=== PATIENT | female | born 1985 | race Caucasian/White ===

== ENCOUNTER 2017-09-23 18:10 | Emergency (ER) | payer OTHER ==
[2017-09-24 07:44] LABS: NEGATIVE OBC STREP NEG; POSITIVE OBC STREP POS
== END 2017-09-23 20:05 | disposition home or self-care (01) ==
LOC: ER 18:10
DX: J02.0 Streptococcal pharyngitis (principal); H65.193 Other acute nonsuppurative otitis media, bilateral; Z88.1 Allergy status to other antibiotic agents
CPT/HCPCS: 87880; 99283

== ENCOUNTER 2017-11-24 20:21 | Emergency (ER) | payer OTHER | END 2017-11-24 22:27 | disposition home or self-care (01) | LOC: ER 20:21 | DX: S92.912A Unspecified fracture of left toe(s), initial encounter for closed fracture (principal); W09.8XXA Fall on or from other playground equipment, initial encounter; Y93.89 Activity, other specified; Y99.8 Other external cause status; Y92.89 Other specified places as the place of occurrence of the external cause | CPT/HCPCS: 73630; 99284 ==

== ENCOUNTER 2018-03-26 22:03 | Emergency (ER) | payer OTHER ==
[~2018-03-26] VITALS: Ht 152.4 cm; Wt 99.8 kg
[~2018-03-26 22:03] MED LIST: AZIT200S4 PO; HYDR15SO4 PO; PRED15SO24 PO; PRED50TA PO; SULF1TAB24 PO; SULF200O PO
[2018-03-26 22:25] VITALS: BP 138/75
[2018-03-26] MEDS ORDERED: IBUP-1060 PO (22:28)
[2018-03-26] MEDS ORDERED: HYDR-971 PO (22:28)
[2018-03-26] MEDS ORDERED: CLIN300C8 PO (22:28)
--- NOTE | 2018-03-26 22:29 | PHYS DOC ---
Past Medical History Past Medical History: No Pertinent History Past Surgical History: No Surgical History Alcohol Use: Occasionally Drug Use: None Adult General Chief Complaint Chief Complaint: DENTAL PROBLEM HPI HPI Patient is a 32 year old female presents to the ED complaining of dental pain 5 days ago. Discussed pain as sharp. Rates the pain as 7 out of 10. States she noticed some swelling to her left upper mouth. Patient has a history of dental problems. Denies fever, nausea/vomiting, difficulty swallowing, chest pain, shortness of breath, abdominal pain, sore throat, headache or neck pain. Review of Systems Review of Systems Constitutional: Denies fever or chills [] Eyes: Denies change in visual acuity, redness, or eye pain [] HENT: Complains of dental pain. Denies nasal congestion or sore throat [] Respiratory: Denies cough or shortness of breath [] Cardiovascular: No additional information not addressed in HPI [] GI: Denies abdominal pain, nausea, vomiting, bloody stools or diarrhea [] Integument: Denies rash or skin lesions [] Neurologic: Denies headache, focal weakness or sensory changes [] All other systems were reviewed and found to be within normal limits, except as documented in this note. Allergies Allergies Allergies Coded Allergies Type Severity Reaction Last Updated Verified amoxicillin Allergy Intermediate 02/10/16 Yes Physical Exam Physical Exam Constitutional: Well developed, well nourished, no acute distress, non-toxic appearance. [] HENT: Normocephalic, atraumatic, bilateral external ears normal, oropharynx moist, no oral exudates, nose normal. left upper molar rotted off to the gum line. mild swelling. no appreciable abscess. poor dentition throughout.[] Eyes: PERRLA, EOMI, conjunctiva normal, no discharge. [] Neck: Normal range of motion, no tenderness, supple, no stridor. [] Cardiovascular:Heart rate regular rhythm, no murmur [] Lungs & Thorax: Bilateral breath sounds clear to auscultation [] Skin: Warm, dry, no erythema, no rash. [] Neurologic: Alert and oriented X 3, normal motor function, normal sensory function, no focal deficits noted. [] Psychologic: Affect normal, judgement normal, mood normal. [] EKG EKG [] Radiology/Procedures Radiology/Procedures [] Course & Med Decision Making Course & Med Decision Making Pertinent Labs and Imaging studies reviewed. (See chart for details) []Patient treated with clindamycin in the ED. We'll treat with clindamycin and analgesics outpatient. Discussed symptomatic treatment at home. Discussed follow -up with dental clinic this coming week. Provided community resource list. Discussed reasons to return to the ED. Patient understands and agrees with plan. Dragon Disclaimer Dragon Disclaimer This electronic medical record was generated, in whole or in part, using a voice recognition dictation system. Departure Departure Impression: Primary Impression: Dental caries Additional Impression: Pain, dental Disposition: HOME, SELF-CARE Condition: IMPROVED Referrals: NO PCP (PCP) HOANG REDD DDS Patient Instructions: Dental Abscess, Dental Caries Scripts Ibuprofen (IBUPROFEN) 800 Mg Tablet 800 MG PO PRN Q6HRS PRN for INFLAMMATION, #14 TAB Prov: DARION LOWE 03/26/18 Hydrocodone/Apap 5-325 (NORCO 5-325 TABLET) 1 Each Tablet 1 TAB PO BID for 3 Days, #6 TAB Prov: DARION LOWE 03/26/18 Clindamycin Hcl (CLINDAMYCIN HCL) 300 Mg Capsule 300 MG PO QID for 10 Days, #40 CAP Prov: DARION LOWE 03/26/18 Problem Qualifiers DARION LOWE Mar 26, 2018 22:29
[2018-03-26] MEDS ORDERED: CLINDAMYCIN IM 600 MG/4 ML VIAL. IM ONE (22:30)
== END 2018-03-26 22:46 | disposition home or self-care (01) ==
LOC: ER 22:03
DX: K02.9 Dental caries, unspecified (principal); K08.89 Other specified disorders of teeth and supporting structures; Z88.1 Allergy status to other antibiotic agents
CPT/HCPCS: 96372; 99283; J3490

== ENCOUNTER 2018-12-02 18:23 | Emergency (ER) | payer OTHER ==
[~2018-12-02] VITALS: Ht 152.4 cm; Wt 104.3 kg
[~2018-12-02 18:23] MED LIST changes: +CHLO15MO2 PO; +CLIN300C8 PO; +HYDR-3164 PO; -HYDR15SO4 PO; +HYDR15SO6 PO; +IBUP-1060 PO
[2018-12-02 18:37] VITALS: BP 141/79
[2018-12-02] MEDS ORDERED: HYDR15SO9 PO (20:14)
[2018-12-02] MEDS ORDERED: CLIN300C8 PO (20:14)
--- NOTE | 2018-12-02 20:14 | PHYS DOC ---
Past Medical History Past Medical History: No Pertinent History Past Surgical History: No Surgical History Alcohol Use: Occasionally Drug Use: None Adult General Chief Complaint Chief Complaint: DENTAL PROBLEM HPI HPI Patient is a 33-year-old female who presents with complaint of facial swelling and dental pain for the last 24 hours. She states that the swelling really started this morning. She does admit to history of dental problems indicating that she has very poor dentition. She denies any fever. She rates pain as moderate. Patient states that she is unable to swallow pills and is requesting a liquid. Review of Systems Review of Systems Constitutional: Denies fever or chills [] HENT: Positive dental pain and facial swelling[] Respiratory: Denies cough or shortness of breath [] Cardiovascular: No additional information not addressed in HPI [] Allergies Allergies Allergies Coded Allergies Type Severity Reaction Last Updated Verified amoxicillin Allergy Intermediate 02/10/16 Yes Penicillins Allergy Unknown 03/26/18 Yes Physical Exam Physical Exam Constitutional: Well developed, well nourished, no acute distress, non-toxic appearance. [] HENT: Normocephalic, atraumatic. Moderate left-sided maxillary facial swelling. Dentition is very poor with widespread caries. [] Cardiovascular:Heart rate regular rhythm, no murmur [] Lungs & Thorax: Bilateral breath sounds clear to auscultation [] Neurologic: Alert and oriented X 3, no focal deficits noted. [] Current Patient Data Vital Signs Vital Signs Date Time Temp Pulse Resp B/P (MAP) Pulse Ox O2 Delivery O2 Flow Rate FiO2 12/02/18 18:37 99.9 106 16 141/79 (99) 96 Room Air 99.9 EKG EKG [] Radiology/Procedures Radiology/Procedures [] Course & Med Decision Making Course & Med Decision Making Pertinent Labs and Imaging studies reviewed. (See chart for details) [] Dragon Disclaimer Dragon Disclaimer This electronic medical record was generated, in whole or in part, using a voice recognition dictation system. Departure Departure Impression: Primary Impression: Pain due to dental caries Disposition: 01 HOME, SELF-CARE Condition: STABLE Referrals: NO PCP (PCP) Patient Instructions: Dental Caries, Dental Pain Scripts Clindamycin Hcl (CLINDAMYCIN HCL) 300 Mg Capsule 1 CAP PO QID, #40 CAP Prov: VIJAY RODRIGUEZ Jr. DO 12/02/18 Hydrocodone/Acetaminophen (Hydrocodone-Acetamn 7.5-325/15) 15 Ml Solution 10 ML PO Q6HRS PRN for PAIN, #100 ML Prov: VIJAY RODRIGUEZ Jr. DO 12/02/18 VIJAY RODRIGUEZ Jr. DO Dec 02, 2018 20:14
== END 2018-12-02 20:22 | disposition home or self-care (01) ==
LOC: ER 18:23
DX: K08.89 Other specified disorders of teeth and supporting structures (principal); K02.9 Dental caries, unspecified; Z88.0 Allergy status to penicillin; Z88.1 Allergy status to other antibiotic agents
CPT/HCPCS: 99283

== ENCOUNTER 2020-05-13 15:43 | Emergency (ER) | payer OTHER, MEDICAID ==
[~2020-05-13] VITALS: Ht 152.4 cm; Wt 109.0 kg
[~2020-05-13 15:43] MED LIST changes: +HYDR15SO9 PO
[2020-05-13 15:53] VITALS: BP 132/82
[2020-05-13] MEDS ORDERED: LIDO20SO10 MM (17:07)
[2020-05-13] MEDS ORDERED: CLIN75SO12 PO (17:07)
--- NOTE | 2020-05-13 17:07 | PHYS DOC ---
Past Medical History Past Medical History: No Pertinent History Past Surgical History: No Surgical History Smoking Status: Never Smoker Alcohol Use: Occasionally Drug Use: None General Adult EDM: Chief Complaint: DENTAL PROBLEM HPI: HPI: Patient is a 34 year old female who presents to the Emergency Room complaining of upper teeth pain. Patient states her upper teeth are all fractured chronically and this is an exacerbation of pain. She is planning on having them pulled and dentures placed. Denies any other issues. No fevers, gum swelling, facial swelling, difficulty talking, difficulty swallowing, drainage. Review of Systems: Review of Systems: Negative other than noted Heart Score: Risk Factors: Risk Factors: DM, Current or recent (<one month) smoker, HTN, HLP, family history of CAD, obesity. Risk Scores: Score 0 - 3: 2.5% MACE over next 6 weeks - Discharge Home Score 4 - 6: 20.3% MACE over next 6 weeks - Admit for Clinical Observation Score 7 - 10: 72.7% MACE over next 6 weeks - Early Invasive Strategies Allergies: Allergies: Allergies Coded Allergies Type Severity Reaction Last Updated Verified amoxicillin Allergy Intermediate 02/10/16 Yes Penicillins Allergy Unknown 03/26/18 Yes Physical Exam: PE: General: Awake, alert, NAD. Well Nourished, well hydrated. Cooperative HEENT: Atraumatic, EOMI, PERRL, airway patent, moist oral mucosa, poor dentition with multiple fractured teeth and decay, no abscess Neck: Supple, trachea midline Respiratory: CTA bilaterally, normal effort, no wheezing/crackles CV: RRR, no murmur, cap refill <2 GI: Soft, nondistended, nontender, no masses MSK: No obvious deformities Skin: Warm, dry, intact Neuro: A&O x3, speech NL, sensory and motor grossly intact, no focal deficits Psych: Normal affect, normal mood, not suicidal or homicidal Current Patient Data: Vital Signs: Vital Signs Date Time Temp Pulse Resp B/P (MAP) Pulse Ox O2 Delivery O2 Flow Rate FiO2 05/13/20 15:53 98.6 97 18 132/82 (99) 97 Room Air 98.6 EKG: EKG: [] Radiology/Procedures: Radiology/Procedures: [] Course & Med Decision Making: Course & Med Decision Making Pertinent Labs and Imaging studies reviewed. (See chart for details) Patient is a 34 year old female who presents with dental pain. No drainable abscess. Will do viscous lidocaine and antibiotics. Dragon Disclaimer: Dragon Disclaimer: This electronic medical record was generated, in whole or in part, using a voice recognition dictation system. Departure Departure Impression: Primary Impression: Gingivitis Additional Impression: Infected dental caries Disposition: HOME, SELF-CARE Condition: STABLE Referrals: NO PCP (PCP) Patient Instructions: Dental Extraction, Care After, Dental Pain Scripts Clindamycin Palmitate Hcl (CLINDAMYCIN PALMITATE HCL) 75 Mg/5 Ml Soln.recon 10 ML PO TID for 7 Days, #300 ML 0 Refills Prov: RANDELL REYES MD 05/13/20 Lidocaine HCl (Lidocaine HCl Viscous) 15 Ml Solution 5 ML MM TID, #120 ML Prov: RANDELL REYES MD 05/13/20 Justicifation of Admission Dx: Justifications for Admission: Justification of Admission Dx: N/A RANDELL REYES MD May 13, 2020 17:07
== END 2020-05-13 17:30 | disposition home or self-care (01) ==
LOC: ER 15:43
DX: K05.10 Chronic gingivitis, plaque induced (principal); K02.9 Dental caries, unspecified; Z88.0 Allergy status to penicillin; Z88.1 Allergy status to other antibiotic agents
CPT/HCPCS: 99283